=== PATIENT | male | born 1990 | race American Indian/Alaskan Native ===

== ENCOUNTER 2018-09-07 14:22 | Emergency (ER) | payer SELFPAY ==
--- NOTE | 2018-09-07 14:30 | Event Note ---
ED Screening Note Date of service: 09/07/18 Time: 14:29 ED Screening Note: 28 y/o male comes in for left shoulder pain s/p fall. This initial assessment/diagnostic orders/clinical plan/treatment(s) is/are subject to change based on patients health status, clinical progression and re-assessment by fellow clinical providers in the ED. Further treatment and workup at subsequent clinical providers discretion. Patient/guardian urged not to elope from the ED as their condition may be serious if not clinically assessed and managed. Initial orders include:
--- NOTE | 2018-09-07 15:37 | XRay Report ---
Left shoulder 3 views INDICATION: Left shoulder pain following injury IMPRESSION: Anterior subluxation of the left shoulder. There may be a small Hill-Sachs deformity invo lving the humeral head. No clavicular fracture or dislocation. Signer Name: Vinny Cat MD Signed: 09/07/2018 3:32 PM Workstation Name: [id number]
[2018-09-07] MEDS ORDERED: SUBLIMAZE IV ONE ×2 (15:42→17:36)
[2018-09-07] MEDS ORDERED: DIPRIVAN 10 MG/ML IV ONE ×2 (17:37→18:36)
[2018-09-07] MEDS ORDERED: NACL 0.9% 1000 ML 1,000 ML ONE (17:47)
[2018-09-07] MEDS ORDERED: AMIDATE IV ONE ×2 (18:00→18:36)
[2018-09-07] MEDS ORDERED: MORPHINE IV ONE (18:31)
--- NOTE | 2018-09-07 18:44 | Emergency Department Report ---
ED Upper Extremity Inj HPI - General Chief Complaint: Shoulder Injury Stated Complaint: DISLOCATED LT SHOULDER Time Seen by Provider: 09/07/18 15:01 Source: patient Mode of arrival: Ambulatory Limitations: No Limitations - History of Present Illness Initial Comments: Pt reports fall at work. States feels as if shoulder is dislocated. Hx of multiple dislocations previously. Complaint: Injury to:: left, shoulder -: hour(s) (2) Place: work Improves With: immobilization Worsens With: movement of extremity Context: fall Associated Symptoms: denies other symptoms Treatments Prior to Arrival: other (sling) - Related Data Previous Rx's Medication Instructions Recorded Last Taken Type HYDROcodone/APAP 7.5-325 [[place] 1 each PO Q6HR PRN #10 tablet 09/07/18 Unknown Rx 7.5/325] Naproxen [Naprosyn] 500 mg PO BID #20 tablet 09/07/18 Unknown Rx Allergies Allergy/AdvReac Type Severity Reaction Status Date / Time No Known Allergies Allergy Unverified 09/07/18 14:27 ED Review of Systems ROS: Stated complaint: DISLOCATED LT SHOULDER Other details as noted in HPI Comment: All other systems reviewed and negative Musculoskeletal: as per HPI Neurological: denies: weakness, numbness ED Past Medical Hx - Past Medical History Previous Medical History?: No - Surgical History Past Surgical History?: No - Social History Smoking Status: Current Every Day Smoker Substance Use Type: Marijuana - Medications Home Medications: Home Medications Medication Instructions Recorded Confirmed Last Taken Type HYDROcodone/APAP 7.5-325 [[place] 1 each PO Q6HR PRN #10 tablet 09/07/18 Unknown Rx 7.5/325] Naproxen [Naprosyn] 500 mg PO BID #20 tablet 09/07/18 Unknown Rx ED Physical Exam - General Limitations: No Limitations General appearance: alert, in no apparent distress - Head Head exam: Present: atraumatic, normocephalic - Eye Eye exam: Present: normal appearance - ENT ENT exam: Present: mucous membranes moist - Neck Neck exam: Present: normal inspection - Respiratory Respiratory exam: Present: normal lung sounds bilaterally. Absent: respiratory distress - Cardiovascular Cardiovascular Exam: Present: regular rate, normal rhythm - GI/Abdominal GI/Abdominal exam: Present: soft. Absent: distended - Extremities Exam Extremities exam: Present: other (deformity noted at left shoulder, decreased ROM present) - Neurological Exam Neurological exam: Present: alert, oriented X3. Absent: motor sensory deficit - Psychiatric Psychiatric exam: Present: normal affect, normal mood - Skin Skin exam: Present: warm, dry ED Course Vital Signs 09/07/18 09/07/18 09/07/18 14:27 15:45 16:01 Temperature 97.9 F Temperature [ Intra-Procedure ] Temperature [ Post-Procedure] Temperature [ Pre-Procedure] Pulse Rate 81 75 Pulse Rate [ Intra-Procedure ] Pulse Rate [ Post-Procedure] Pulse Rate [Pre -Procedure] Respiratory 18 11 L Rate Respiratory Rate [Intra- Procedure] Respiratory Rate [Post- Procedure] Respiratory Rate [Pre- Procedure] Blood Pressure 147/87 Blood Pressure [Intra- Procedure] Blood Pressure [Post-Procedure ] Blood Pressure [Pre-Procedure] O2 Sat by Pulse 100 100 99 Oximetry O2 Sat by Pulse Oximetry [ Intra-Procedure ] O2 Sat by Pulse Oximetry [Post -Procedure] O2 Sat by Pulse Oximetry [Pre- Procedure] 09/07/18 09/07/18 09/07/18 16:31 17:01 17:30 Temperature Temperature [ Intra-Procedure ] Temperature [ Post-Procedure] Temperature [ Pre-Procedure] Pulse Rate 62 Pulse Rate [ Intra-Procedure ] Pulse Rate [ Post-Procedure] Pulse Rate [Pre -Procedure] Respiratory 21 12 Rate Respiratory Rate [Intra- Procedure] Respiratory Rate [Post- Procedure] Respiratory Rate [Pre- Procedure] Blood Pressure Blood Pressure [Intra- Procedure] Blood Pressure [Post-Procedure ] Blood Pressure [Pre-Procedure] O2 Sat by Pulse 100 98 100 Oximetry O2 Sat by Pulse Oximetry [ Intra-Procedure ] O2 Sat by Pulse Oximetry [Post -Procedure] O2 Sat by Pulse Oximetry [Pre- Procedure] 09/07/18 09/07/18 09/07/18 17:31 17:42 17:50 Temperature Temperature [ 97.8 F Intra-Procedure ] Temperature [ Post-Procedure] Temperature [ 97.7 F 97.7 F Pre-Procedure] Pulse Rate 75 Pulse Rate [ 79 Intra-Procedure ] Pulse Rate [ Post-Procedure] Pulse Rate [Pre 80 80 -Procedure] Respiratory 8 L Rate Respiratory 17 Rate [Intra- Procedure] Respiratory Rate [Post- Procedure] Respiratory 17 17 Rate [Pre- Procedure] Blood Pressure Blood Pressure 176/111 [Intra- Procedure] Blood Pressure [Post-Procedure ] Blood Pressure 168/98 168/98 [Pre-Procedure] O2 Sat by Pulse 100 Oximetry O2 Sat by Pulse 100 Oximetry [ Intra-Procedure ] O2 Sat by Pulse Oximetry [Post -Procedure] O2 Sat by Pulse 100 100 Oximetry [Pre- Procedure] 09/07/18 09/07/18 09/07/18 17:55 18:01 18:05 Temperature Temperature [ 97.8 F 97.7 F Intra-Procedure ] Temperature [ Post-Procedure] Temperature [ 97.7 F 97.7 F Pre-Procedure] Pulse Rate 65 Pulse Rate [ 75 62 Intra-Procedure ] Pulse Rate [ Post-Procedure] Pulse Rate [Pre 80 80 -Procedure] Respiratory 16 Rate Respiratory 14 14 Rate [Intra- Procedure] Respiratory Rate [Post- Procedure] Respiratory 17 17 Rate [Pre- Procedure] Blood Pressure 153/93 Blood Pressure 158/141 153/93 [Intra- Procedure] Blood Pressure [Post-Procedure ] Blood Pressure 168/98 168/98 [Pre-Procedure] O2 Sat by Pulse 99 Oximetry O2 Sat by Pulse 100 100 Oximetry [ Intra-Procedure ] O2 Sat by Pulse Oximetry [Post -Procedure] O2 Sat by Pulse 100 100 Oximetry [Pre- Procedure] 09/07/18 09/07/18 09/07/18 18:10 18:15 18:17 Temperature Temperature [ 97.7 F 97.7 F 97.7 F Intra-Procedure ] Temperature [ 97.7 F Post-Procedure] Temperature [ 97.7 F 97.7 F Pre-Procedure] Pulse Rate Pulse Rate [ 80 74 74 Intra-Procedure ] Pulse Rate [ 68 Post-Procedure] Pulse Rate [Pre 80 80 -Procedure] Respiratory Rate Respiratory 15 13 13 Rate [Intra- Procedure] Respiratory 17 Rate [Post- Procedure] Respiratory 17 17 Rate [Pre- Procedure] Blood Pressure Blood Pressure 117/94 151/73 151/73 [Intra- Procedure] Blood Pressure 159/94 [Post-Procedure ] Blood Pressure 168/98 168/98 [Pre-Procedure] O2 Sat by Pulse Oximetry O2 Sat by Pulse 100 100 100 Oximetry [ Intra-Procedure ] O2 Sat by Pulse 97 Oximetry [Post -Procedure] O2 Sat by Pulse 100 100 Oximetry [Pre- Procedure] 09/07/18 09/07/18 09/07/18 18:30 18:56 19:00 Temperature Temperature [ Intra-Procedure ] Temperature [ Post-Procedure] Temperature [ Pre-Procedure] Pulse Rate 61 118 H 74 Pulse Rate [ Intra-Procedure ] Pulse Rate [ Post-Procedure] Pulse Rate [Pre -Procedure] Respiratory 12 19 12 Rate Respiratory Rate [Intra- Procedure] Respiratory Rate [Post- Procedure] Respiratory Rate [Pre- Procedure] Blood Pressure 168/96 159/94 Blood Pressure [Intra- Procedure] Blood Pressure [Post-Procedure ] Blood Pressure [Pre-Procedure] O2 Sat by Pulse 75 L 100 Oximetry O2 Sat by Pulse Oximetry [ Intra-Procedure ] O2 Sat by Pulse Oximetry [Post -Procedure] O2 Sat by Pulse Oximetry [Pre- Procedure] 09/07/18 09/07/18 19:01 19:30 Temperature Temperature [ 97.7 F Intra-Procedure ] Temperature [ 97.7 F Post-Procedure] Temperature [ 97.7 F Pre-Procedure] Pulse Rate 79 Pulse Rate [ 74 Intra-Procedure ] Pulse Rate [ 68 Post-Procedure] Pulse Rate [Pre 80 -Procedure] Respiratory 18 Rate Respiratory 13 Rate [Intra- Procedure] Respiratory 17 Rate [Post- Procedure] Respiratory 17 Rate [Pre- Procedure] Blood Pressure 148/86 Blood Pressure 151/73 [Intra- Procedure] Blood Pressure 159/94 [Post-Procedure ] Blood Pressure 168/98 [Pre-Procedure] O2 Sat by Pulse 99 Oximetry O2 Sat by Pulse 100 Oximetry [ Intra-Procedure ] O2 Sat by Pulse 97 Oximetry [Post -Procedure] O2 Sat by Pulse 100 Oximetry [Pre- Procedure] - Orthopedic Joint Reduction Joint #1 Consent Obtained: written consent Time Out Performed: Yes Side: left Joint Reduction Location: shoulder Analgesia: moderate sedation Shoulder Technique Used (if applicable): Jim Post-Reduction Neuro Exam: intact Post-Reduction Vascular Exam: intact Post Reduction X-Ray Obtained: Yes Post Reduction X-Ray Results: reduced Splint Applied: Yes Patient Tolerated Procedure: well ED Medical Decision Making - Radiology Data Radiology results: report reviewed, image reviewed - Differential Diagnosis fracture, sprain, dislocation Critical care attestation.: If time is entered above; I have spent that time in minutes in the direct care of this critically ill patient, excluding procedure time. ED Disposition Clinical Impression: Dislocation of shoulder, left, closed Disposition: DC-01 TO HOME OR SELFCARE Is pt being admited?: No Condition: Stable Instructions: Shoulder Dislocation (ED), Moderate Sedation (ED) Prescriptions: Naproxen [Naprosyn] 500 mg PO BID #20 tablet HYDROcodone/APAP 7.5-325 [[place] 7.5/325] 1 each PO Q6HR PRN #10 tablet PRN Reason: Pain Referrals: CARLENE SOSA MD [Staff Physician] - 3-5 Days Time of Disposition: 18:46
--- NOTE | 2018-09-07 18:55 | XRay Report ---
Left shoulder 3 views INDICATION: Left shoulder pain. IMPRESSION: Satisfactory reduction of the left shoulder dislocation. Signer Name: Vinny Cat MD Signed: 09/07/2018 6:51 PM Workstation Name: [id number]
[2018-09-07 20:09] VITALS: BP 151/90
== END 2018-09-07 20:09 | disposition home or self-care (01) ==
LOC: ED 14:22
DX: S43.005A Unspecified dislocation of left shoulder joint, initial encounter (principal); X58.XXXA Exposure to other specified factors, initial encounter; Y93.9 Activity, unspecified; Y92.89 Other specified places as the place of occurrence of the external cause; Y99.8 Other external cause status
CPT/HCPCS: 23650; 73020; 73030; 96374; 96375; 96376; 99283; J2704; J3010; J2270; J7030